=== PATIENT | female | born 1970 | race Two or more races ===

== ENCOUNTER 2020-05-14 07:34 | Outpatient (CLI) | payer OTHER | END 2020-05-14 23:59 | disposition home or self-care (01) | LOC: LAB 07:34 | PROVIDERS: ATTEND Orthopaedic Surgery | DX: Z01.812 Encounter for preprocedural laboratory examination (principal); Z20.822 Contact with and (suspected) exposure to COVID-19; G56.01 Carpal tunnel syndrome, right upper limb ==

== ENCOUNTER 2020-05-15 09:11 | Outpatient (CLI) | payer OTHER ==
[2020-05-15 10:45] LABS: BASOPHILS % (AUTO) 0.7 % (0.0-2.0); EOSINOPHILS % (AUTO) 0.9 % (0.0-7.0); HEMATOCRIT 39.2 % (31.2-41.9); LYMPHOCYTES # (AUTO) 1.7 K/uL (20.0-40.0); LYMPHOCYTES % (AUTO) 45.5 % (20.5-51.5); MEAN CORPUSCULAR HEMOGLOBIN 30.1 uug (24.7-32.8); MEAN CORPUSCULAR HGB CONC 33 g/dL (32.3-35.6); MEAN CORPUSCULAR VOLUME 90.9 fL (75.5-95.3); MONOCYTES # (AUTO) 0.3 K/uL (2.0-10.0); MONOCYTES % (AUTO) 8.8 % (0.0-11.0); NEUTROPHILS # (AUTO) 1.7 K/uL (1.8-8.9); NEUTROPHILS % (AUTO) 44.1 % (38.5-71.5); PLATELET COUNT (AUTO) 223 K/uL (179-408); RED BLOOD CELL COUNT(AUTO) 4.32 MIL/uL (3.63-4.92); WHITE BLOOD COUNT (AUTO) 3.8 K/uL (3.8-11.8)
[2020-05-15 10:49] LABS: *BILIRUBIN,URIN NEGATIVE (NEGATIVE); *BLOOD, URINE NEGATIVE (NEGATIVE); *CLARITY,URINE CLEAR (CLEAR); *COLOR,URINE YELLOW (YELLOW); *KETONES,URINE NEGATIVE (NEGATIVE); LEUKOCYTE ESTERASE ,URINE NEGATIVE (NEGATIVE); NITRITE, URINE NEGATIVE (NEGATIVE); PH,URINE 8.5 (5.0-8.0); UGLUCOSE NEGATIVE (NEGATIVE)
[2020-05-15 10:54] LABS: CREATININE 0.9 mg/dL (0.6-1.3); POTASSIUM 4.2 mmol/L (3.5-5.1)
[2020-05-15 11:00] LABS: BILIRUBIN,TOTAL 0.4 mg/dL (0.2-1.0); TOTAL PROTEIN, SERUM 7.2 g/dL (6.4-8.2)
[2020-05-15 12:01] LABS: BACTERIA,URINE FEW /HPF (NONE SEEN); RBC,URINE 0-3 /HPF (0-3); SQUAMOUS EPITHELIAL CELL,UR MODERATE /HPF (NONE SEEN); WBC,URINE 0-3 /HPF (0-3)
== END 2020-05-15 23:59 | disposition home or self-care (01) ==
LOC: LAB 09:11
PROVIDERS: ATTEND Internal Medicine
DX: Z01.818 Encounter for other preprocedural examination (principal); I08.8 Other rheumatic multiple valve diseases; G56.01 Carpal tunnel syndrome, right upper limb; R00.1 Bradycardia, unspecified
CPT/HCPCS: 36415; 71045; 85025; 85730; 93005; 93307

== ENCOUNTER 2020-05-17 06:39 | Day surgery (SDC) | payer OTHER ==
[2020-05-17] MEDS ORDERED: ONDANSETRON 4 MG/2 ML VIAL IV ONE (06:40)
[2020-05-17] MEDS ORDERED: EPHEDRINE SULFATE 50 MG/ML AMPUL IM ONE (06:40)
[2020-05-17] MEDS ORDERED: METOCLOPRAMIDE HCL 10 MG/2 ML VIAL IV ONE (06:40)
[2020-05-17] MEDS ORDERED: PROPOFOL 200 MG/20 ML BOTTLE IV ONE (06:40)
[2020-05-17] MEDS ORDERED: DEXAMETHASONE SOD PHOSPHATE 4 MG INJ IV ONE (06:40)
[2020-05-17] MEDS ORDERED: LIDOCAINE-MPF 2% 5 ML VIAL IJ ONE (06:40)
[2020-05-17] MEDS ORDERED: POLYMYXIN B SULFATE 500,000 UNITS, BACITRACIN 50,000 UNITS, NORMAL SALINE 20 ML MC ONE ×3 (07:30)
[2020-05-17] MEDS ORDERED: BUPIVACAINE PF 0.5% 30 ML VIAL ONE (07:34)
[2020-05-17] MEDS ORDERED: MIDAZOLAM HCL 2 MG/2 ML VIAL ONE (08:01)
[2020-05-17] MEDS ORDERED: ROCURONIUM BROMIDE 50 MG/5 ML VIAL ONE (08:01)
[2020-05-17] MEDS ORDERED: FENTANYL CITRATE 100 MCG/2 ML AMPUL ONE (08:01)
[2020-05-17] MEDS ORDERED: SUCCINYLCHOLINE CHLORIDE 200 MG/10 ML VIAL ONE (08:02)
[2020-05-17] MEDS ORDERED: TRAMADOL HCL 50 MG TABLET ONE (10:40)
== END 2020-05-17 11:25 | disposition home or self-care (01) ==
LOC: DS 06:39
PROVIDERS: ATTEND Orthopaedic Surgery
DX: G56.01 Carpal tunnel syndrome, right upper limb (principal); I10 Essential (primary) hypertension; Z87.440 Personal history of urinary (tract) infections; Z79.899 Other long term (current) drug therapy; Z98.890 Other specified postprocedural states; Z90.49 Acquired absence of other specified parts of digestive tract
CPT/HCPCS: 64721; J0330; J1100; J2250; J2405; J2765; J3010; J3490 ×6; J7120; A4649; A4663